=== PATIENT | female | born 2000 | race American Indian/Alaskan Native ===

== ENCOUNTER 2019-09-13 09:25 | Emergency (ER) | payer SELFPAY ==
--- NOTE | 2019-09-13 11:28 | Emergency Department Report ---
ED General Adult HPI - General Chief complaint: Skin/Abscess/Foreign Body Stated complaint: BOIL ON VAGINAL/PAIN Time Seen by Provider: 09/13/19 10:09 Source: patient Mode of arrival: Ambulatory Limitations: No Limitations - History of Present Illness Initial comments: Patient is a 19-year-old female presents emergency room with complaints of a boil to the right labia that began 3 to 4 days ago. She states that she recently started shaving. She states that she has been using warm compresses but it has not been helping. She states that she gets these frequently. She denies any drainage, fever, urinary symptoms, abdominal pain, nausea, vomiting, diarrhea. She states that she is also had a pruritic rash to her abdomen and trunk. She states that her doctor told her it was hives and gave her some medication but it has not been helping. She denies any past medical history. She denies any allergies to medications. She states she is currently on her menstrual cycle. - Related Data Previous Rx's Medication Instructions Recorded Last Taken Type Clotrimazole 1% [Lotrimin 1%] 1 applic TP BID #1 tube 09/13/19 Unknown Rx Doxycycline Hyclate [Doxycycline 100 mg PO BID 10 Days #20 tab 09/13/19 Unknown Rx Hyclate TAB] Allergies Allergy/AdvReac Type Severity Reaction Status Date / Time pollen extracts Allergy Unknown Verified 09/13/19 09:27 ED Review of Systems ROS: Stated complaint: BOIL ON VAGINAL/PAIN Other details as noted in HPI Comment: All other systems reviewed and negative ED Past Medical Hx - Social History Smoking Status: Never Smoker Substance Use Type: Alcohol - Medications Home Medications: Home Medications Medication Instructions Recorded Confirmed Last Taken Type Clotrimazole 1% [Lotrimin 1%] 1 applic TP BID #1 tube 09/13/19 Unknown Rx Doxycycline Hyclate [Doxycycline 100 mg PO BID 10 Days #20 tab 09/13/19 Unknown Rx Hyclate TAB] ED Physical Exam - General Limitations: No Limitations General appearance: alert, in no apparent distress - Head Head exam: Present: atraumatic, normocephalic - Eye Eye exam: Present: normal appearance - ENT ENT exam: Present: mucous membranes moist - Respiratory Respiratory exam: Present: normal lung sounds bilaterally. Absent: respiratory distress, wheezes, rales, rhonchi, stridor, chest wall tenderness, accessory muscle use, decreased breath sounds, prolonged expiratory - Cardiovascular Cardiovascular Exam: Present: regular rate, normal rhythm, normal heart sounds. Absent: systolic murmur, diastolic murmur, rubs, gallop - External exam: Present: swelling (4 cm area of edema present to the mons pubis/right labia with fluctuance present, no active drainage, mild erythema, ttp, no blisters or lesions, drum puller: vernon veronica RN) - Neurological Exam Neurological exam: Present: alert, oriented X3 - Psychiatric Psychiatric exam: Present: normal affect, normal mood - Skin Skin exam: Present: other (small areas of hyperpigmentation with scaling around the edges present to the abdomen and back, no blisters, no drainage, no signs of infection, no necrosis) ED Course Vital Signs 09/13/19 09/13/19 09:29 11:47 Temperature 98.3 F Pulse Rate 66 61 Respiratory 18 16 Rate Blood Pressure 130/84 Blood Pressure 126/81 [Left] O2 Sat by Pulse 99 99 Oximetry - I & D Vagina Type of Procedure: Simple Site: mons pubis/right labia Blade Size: 11 I & D Procedure: betadine prep, sterile drapes applied, sterile dressing applied Progress: Area prepped with Betadine, 4 cc of 1% lidocaine without epinephrine used as anesthetic, Betadine prep again, sterile drapes applied, 1 cm incision made with 11 blade, moderate amount of purulent drainage expressed, irrigated with saline, patient would not allow packing to be placed, discussed with patient that it could return, will place patient on antibiotics, patient tolerated well, no complications, bleeding controlled, sterile dressing applied ED Medical Decision Making - Medical Decision Making Patient is a 19-year-old female presents emergency room with complaints of a boil to the right labia that began 3 to 4 days ago. She states that she recently started shaving. She states that she has been using warm compresses but it has not been helping. She states that she gets these frequently. She denies any drainage, fever, urinary symptoms, abdominal pain, nausea, vomiting, diarrhea. She states that she is also had a pruritic rash to her abdomen and trunk. She states that her doctor told her it was hives and gave her some medication but it has not been helping. She denies any past medical history. She denies any allergies to medications. She states she is currently on her menstrual cycle. on exam: 4 cm area of edema present to the mons pubis/right labia with fluctuance present, no active drainage, mild erythema, ttp, no blisters or lesions, drum puller: vernon veronica RN. Incision and drainage procedure performed at bedside with nurse as drum puller, performed per procedure note, patient would not allow packing to be placed, patient was placed on antibiotics. Discussed with patient that it could return without packing, she verbalized understanding. on skin examination small areas of hyperpigmentation with scaling around the edges present to the abdomen and back, no blisters, no drainage, no signs of infection, no necrosis please take medication as prescribed. Appears to be tinea corporis versus pityriasis rosea, patient states that she already attempted to use hydrocortisone cream and states it made it worse, will place patient on antifungal ointment. Patient given prescription for doxycycline and clotrimazole. advised pt to please keep area clean, dry, covered. May wash with soap and water and immediately dry. Please do not shave. No hot tub, pool, soaking in water. Follow-up with a primary care doctor in the next 3 to 5 days for reexamination. Return to the emergency room for any new or worsening symptoms. - Differential Diagnosis abscess, cellulitis, follculitis, sebaceous cyst Critical care attestation.: If time is entered above; I have spent that time in minutes in the direct care of this critically ill patient, excluding procedure time. ED Disposition Clinical Impression: Abscess of right genital labia, Tinea corporis, Encounter for incision and drainage procedure Disposition: DC- TO HOME OR SELFCARE Is pt being admited?: No Does the pt Need Aspirin: No Condition: Stable Instructions: Tinea Corporis (ED), Abscess (ED) Additional Instructions: Please take medication as prescribed. Please keep area clean, dry, covered. May wash with soap and water and immediately dry. Please do not shave. No hot tub, pool, soaking in water. Follow-up with a primary care doctor in the next 3 to 5 days for reexamination. Return to the emergency room for any new or worsening symptoms. Prescriptions: Doxycycline Hyclate [Doxycycline Hyclate TAB] 100 mg PO BID 10 Days #20 tab Clotrimazole 1% [Lotrimin 1%] 1 applic TP BID #1 tube Referrals: PRIMARY CARE, [Primary Care Provider] - 3-5 Days Time of Disposition: 11:31 Print Language: MICRONESIAN
[2019-09-13] MEDS ORDERED: LIDOCAINE-MPF (1%) 10 MG/1 ML VIAL 5 ML INFILTRATI ONE (11:31)
[2019-09-13 11:48] VITALS: BP 126/81
== END 2019-09-13 11:47 | disposition home or self-care (01) ==
LOC: ED 09:25
DX: N76.0 Acute vaginitis (principal); B35.4 Tinea corporis; Z48.817 Encounter for surgical aftercare following surgery on the skin and subcutaneous tissue; Z79.899 Other long term (current) drug therapy; Z91.048 Other nonmedicinal substance allergy status